=== PATIENT | female | born 2000 | race African-American/Black ===

== ENCOUNTER 2022-04-18 11:15 | Inpatient (IN) | payer OTHER ==
[2022-04-18] MEDS ORDERED: CITRIC ACID/SODIUM CITRATE 30 ML UNIT-DOSE CUP PO ONE (12:24)
[2022-04-18] MEDS ORDERED: ELECTROLYTE-148 SOLN 1,000 ML IV SCH ×2 (12:30)
[2022-04-18] MEDS ORDERED: OXYTOCIN 30 UNITS in 0.9% NS 30 UNIT/500 ML INFUS.BAG IVPB ONE (13:31)
[2022-04-18] MEDS ORDERED: DEXAMETHASONE SOD PHOSPHATE 4 MG/1 ML VIAL ONE (13:32)
[2022-04-18] MEDS ORDERED: KETOROLAC TROMETHAMINE 30 MG/1 ML VIAL ONE (13:32)
[2022-04-18] MEDS ORDERED: morphine SULFATE/PF 1 MG/2 ML (2cc Syringe - QUVA) ONE (13:32)
[2022-04-18] MEDS ORDERED: ceFAZolin SODIUM 1 GM VIAL ONE ×3 (13:32→13:41)
[2022-04-18] MEDS ORDERED: ONDANSETRON 4 MG/2 ML VIAL ONE (13:32)
[2022-04-18 13:34] VITALS: BMI 28.2
[2022-04-18] MEDS ORDERED: IBUPROFEN 800 MG/8 ML IJ IVPB PRN (14:18)
[2022-04-18] MEDS ORDERED: METHYLERGONOVINE MALEATE 0.2 MG/1 ML AMP IM PRN (14:18)
[2022-04-18] MEDS ORDERED: ACETAMINOPHEN 325 MG TABLET (FP) PO PRN (14:18)
[2022-04-18] MEDS ORDERED: OXYTOCIN 20 UNITS in 0.9% NS 20 UNIT/1,000 ML INFUS.BAG IV SCH (14:30)
[2022-04-18] MEDS: FERROUS SO4 325 MG TABLET (FP) PO SCH (21:18)
[2022-04-19] MEDS: oxyCODONE HCL 5 MG TABLET PO PRN ×2 (05:29→14:27)
[2022-04-19] MEDS: SIMETHICONE 80 MG TAB.CHEW (FP) PO PRN ×2 (05:29→14:27)
[2022-04-19] MEDS: IBUPROFEN 600 MG TABLET (FP) PO PRN ×2 (08:16→18:11)
[2022-04-19 09:15] LABS: BASO % 0.1 % (0-2.0); EOS % 0.3 % (0-4.5); HEMATOCRIT 42.7 % (32.4-45.2); HEMOGLOBIN 13.8 GM/dL (10.7-15.3); LYMPH % 9.9 % (8-40); MCH 29.2 pg (25.7-33.7); MCHC 32.4 g/dl (32.0-36.0); MEAN PLT VOLUME 9.1 fl (7.5-11.1); MONO % 6.3 % (3.8-10.2); NEUT % 83.4 % (42.8-82.8); PLATELET COUNT 157 10^3/uL (134-434); RBC 4.74 M/mm3 (3.60-5.2); RDW 14.2 % (11.6-15.6); WHITE BLOOD COUNT 16.7 K/mm3 (4.0-10.0)
[2022-04-19] MEDS: PRENATAL VITAMINS W/ FOLIC ACID TABLET (FP) PO SCH (10:41)
[2022-04-19] MEDS: FERROUS SO4 325 MG TABLET (FP) PO SCH ×2 (10:41→22:25)
[2022-04-19] MEDS ORDERED: BISACODYL 10 MG SUPP.RECT RC PRN (14:18)
[2022-04-20] MEDS: oxyCODONE HCL 5 MG TABLET PO PRN ×3 (02:00→20:40)
[2022-04-20] MEDS: SIMETHICONE 80 MG TAB.CHEW (FP) PO PRN ×3 (02:00→20:40)
[2022-04-20] MEDS: IBUPROFEN 600 MG TABLET (FP) PO PRN ×2 (05:45→12:27)
[2022-04-20] MEDS: PRENATAL VITAMINS W/ FOLIC ACID TABLET (FP) PO SCH (09:33)
[2022-04-20] MEDS: FERROUS SO4 325 MG TABLET (FP) PO SCH ×2 (09:33→22:01)
[2022-04-21] MEDS: SIMETHICONE 80 MG TAB.CHEW (FP) PO PRN ×2 (01:28→10:30)
[2022-04-21] MEDS: oxyCODONE HCL 5 MG TABLET PO PRN (01:28)
[2022-04-21 07:54] LABS: BASO % 0.1 % (0-2.0); EOS % 1.1 % (0-4.5); HEMATOCRIT 40.7 % (32.4-45.2); HEMOGLOBIN 13.1 GM/dL (10.7-15.3); MCH 29.2 pg (25.7-33.7); MCHC 32.1 g/dl (32.0-36.0); MEAN PLT VOLUME 9.4 fl (7.5-11.1); MONO % 5.6 % (3.8-10.2); NEUT % 79.2 % (42.8-82.8); PLATELET COUNT 169 10^3/uL (134-434); RBC 4.47 M/mm3 (3.60-5.2); RDW 14.3 % (11.6-15.6); WHITE BLOOD COUNT 9.2 K/mm3 (4.0-10.0)
[2022-04-21] MEDS: IBUPROFEN 600 MG TABLET (FP) PO PRN (10:30)
[2022-04-21] MEDS: PRENATAL VITAMINS W/ FOLIC ACID TABLET (FP) PO SCH (10:30)
[2022-04-21] MEDS: FERROUS SO4 325 MG TABLET (FP) PO SCH (10:30)
[2022-04-21 11:43] VITALS: BP 111/67; PULSE 77; RESP 18; TEMP 97.6
== END 2022-04-21 13:20 | disposition home or self-care (01) | DRG 540 ==
LOC: JLDR 11:15 → J3W 16:10
PROVIDERS: ADMIT Obstetrics & Gynecology; ATTEND Obstetrics & Gynecology
PROC: 10D00Z1 Extraction of Products of Conception, Low, Open Approach (ICD-10-PCS; principal; 2022-04-18)
DX: O34.211 Maternal care for low transverse scar from previous cesarean delivery (principal); O69.81X0 Labor and delivery complicated by cord around neck, without compression, not applicable or unspecified; Z3A.39 39 weeks gestation of pregnancy; Z37.0 Single live birth
CPT/HCPCS: 36415; 80053; 85025; 85610; 86780; 86850; 86900; 86901; 88307-TC; C9803-CS; U0003; U0005

== ENCOUNTER 2023-10-23 01:34 | Emergency (ER) | payer OTHER ==
[2023-10-23 01:47] VITALS: BP 93/58; PULSE 80; RESP 18; TEMP 98.7; BMI 22.6
[2023-10-23] MEDS ORDERED: KETOROLAC TROMETHAMINE 30 MG/1 ML VIAL ONE (02:10)
[2023-10-23] MEDS: KETOROLAC TROMETHAMINE 30 MG/1 ML VIAL IM ONE (02:15)
[2023-10-23] MEDS ORDERED: DEXAMETHASONE 4 MG TABLET (FP) ONE (02:18)
[2023-10-23] MEDS: DEXAMETHASONE 4 MG TABLET (FP) PO ONE (02:19)
[2023-10-23 02:35] LABS: THROAT:GRP A STREP NOT DETECTED (NOTDETECTED)
== END 2023-10-23 02:58 | disposition home or self-care (01) ==
LOC: JER 01:34
PROC: 3E0233Z Introduction of Anti-inflammatory into Muscle, Percutaneous Approach (ICD-10-PCS; principal; 2023-10-23)
DX: R11.2 Nausea with vomiting, unspecified (principal); R05.9 Cough, unspecified; J00 Acute nasopharyngitis [common cold]; J02.8 Acute pharyngitis due to other specified organisms; Z20.822 Contact with and (suspected) exposure to COVID-19
CPT/HCPCS: 0241U-QW; 87651; 99284-25

== ENCOUNTER 2024-03-14 12:00 | Emergency (ER) | payer OTHER ==
[2024-03-14 12:07] VITALS: BP 109/68; PULSE 106; RESP 18; TEMP 98.2; BMI 20.1
== END 2024-03-14 12:57 | disposition home or self-care (01) ==
LOC: JERFT 12:00
DX: S62.336 Displaced fracture of neck of fifth metacarpal bone, right hand (principal); X58.XXXD Exposure to other specified factors, subsequent encounter
CPT/HCPCS: 73140-TC-RT-FY; 99283-25